=== PATIENT | male | born 1980 | race Caucasian/White ===

== ENCOUNTER 2019-04-19 05:05 | Day surgery (SDC) | payer BC, OTHER ==
[2019-04-13 11:15] VITALS: BMI 27.6
[2019-04-19] MEDS ORDERED: LIDOCAINE 1%-EPI 1:100,000 30 ML MDV IJ ONE (07:23)
[2019-04-19] MEDS ORDERED: KETOROLAC TROMETHAMINE 30 MG/1 ML VIAL ONE (07:26)
[2019-04-19] MEDS ORDERED: LIDOCAINE HCL/PF 2% SDV 5ML VIAL ONE (07:26)
[2019-04-19] MEDS ORDERED: DEXAMETHASONE SOD PHOSPHATE 4 MG/1 ML VIAL ONE (07:26)
[2019-04-19] MEDS ORDERED: SUCCINYLCHOLINE CHLORIDE 200 MG/10 ML SYRINGE ONE (07:30)
[2019-04-19] MEDS ORDERED: MIDAZOLAM HCL 2 MG/2 ML SINGLE DOSE VIAL ONE (08:52)
[2019-04-19] MEDS ORDERED: ONDANSETRON 4 MG/2 ML VIAL IVPUSH PRN (10:09)
[2019-04-19] MEDS ORDERED: oxyCODONE HCL 5 MG TABLET PO PRN ×2 (10:09)
[2019-04-19] MEDS ORDERED: LACTATED RINGERS SOLUTION 1,000 ML IV SCH (10:15)
[2019-04-19] MEDS ORDERED: PROPOFOL 20 ML ONE ×3 (10:59→11:18)
[2019-04-19] MEDS ORDERED: SODIUM CHLORIDE 0.9% P/F 10 ML VIAL IJ ONE (11:16)
[2019-04-19] MEDS ORDERED: LIDOCAINE 1%/EPI 1:100000 (20 ML MULTI DOSE VIAL) IJ ONE (11:23)
[2019-04-19] MEDS ORDERED: BUPIVACAINE HCL 0.5% 250 MG/50 ML VIAL IJ ONE (11:23)
--- NOTE | 2019-04-19 11:48 | OP ---
Operative Note - Note: Operative Date: 04/19/19 Pre-Operative Diagnosis: internal derangement left knee Operation: arthroscopy left knee with chucndroplasty trochlea Post-Operative Diagnosis: Same as Pre-op Surgeon: Mc Cloud Anesthesia: General Specimens Removed: shavings Estimated Blood Loss (mls): 0 Operative Report Dictated: Yes
[2019-04-19 13:20] VITALS: PULSE 76; TEMP 98.2
[2019-04-19 14:10] VITALS: BP 133/79
--- NOTE | 2019-04-19 23:10 | OP ---
DATE OF OPERATION: 04/19/2019 PREOPERATIVE DIAGNOSIS: Internal derangement, left knee. POSTOPERATIVE DIAGNOSIS: Internal derangement, left knee. PROCEDURE: Arthroscopy left knee with chondroplasty on the trochlea. SURGICAL ATTENDING: Mc Cloud MD. ANESTHESIA: General with LMA. CLOSURE: 4-0 nylon. COMPLICATIONS: None. CONDITION: To recovery in stable condition. DESCRIPTION OF OPERATIVE PROCEDURE: Patient was taken to the operating room on April 19, 2019. General anesthesia with LMA was administered by the anesthesiologist. Left lower extremity was prepped and draped in the usual sterile fashion. The medial and lateral infrapatellar portal sites were infiltrated with 1% Xylocaine with epinephrine. Both portals were then made with 15-blade followed by blunt trocar. The scope trocar was placed in the lateral infrapatellar portal and up into the suprapatellar pouch. The knee inflated with a cocktail of 10 mL of 1% Xylocaine, 10 mL 0.5% Marcaine and 20 mL of arthroscopic saline. After allowing the anesthetic to work in the knee, the procedure was performed. The medial and lateral gutters were visualized to be clean. The undersurface of the patella was found to be intact. The trochlea, however, had a nickel-sized central lesion grade 3-4 with significant loose cartilage and surroundings; this was debrided back to smooth, stable, articular cartilage using the arthroscopic shaver. With valgus stress on the knee, the medial compartment was entered and the medial meniscus was visualized and found to be intact. The medial femoral condyle was run and was found to be intact as was the medial tibial plateau. At 90 degrees, the ACL was visualized and probed and found to be intact. In the figure of 4 position, the lateral compartment was entered. The lateral meniscus was visualized and had some slight fraying of its most articular portion. This was debrided using the shaver. The body of the meniscus and the majority of the meniscus was found to be intact and was left alone. The knee was irrigated with copious amounts of irrigation. Port was closed. Prior to closure, 20 mL of 0.5% Marcaine was infused into the knee for postoperative analgesia. Sterile pressure dressing was placed over the left knee. Patient awakened from anesthesia and transferred to recovery in stable condition. No complications. Estimated blood loss negligible. MC CLOUD M.D. [id number]
== END 2019-04-19 14:10 | disposition home or self-care (01) ==
LOC: JASU-SURG 05:05
PROVIDERS: ATTEND Orthopaedic Surgery
PROC: 0SBD4ZZ Excision of Left Knee Joint, Percutaneous Endoscopic Approach (ICD-10-PCS; principal; 2019-04-19 10:00)
DX: M23.92 Unspecified internal derangement of left knee (principal)
CPT/HCPCS: 94760; 97116-GP